=== PATIENT | male | born 1960 | race Caucasian/White ===

== ENCOUNTER 2017-07-01 18:00 | Emergency (ER) | payer SELFPAY ==
[2017-07-01] MEDS ORDERED: BUPIVACAINE HCL/PF 5 MG/ML 10ML VIAL IV ONE (18:12)
[2017-07-01] MEDS ORDERED: CEPHALEXIN 250 MG CAPSULE PO ONE (18:52)
[2017-07-01] MEDS ORDERED: NEOMYCIN SU/BACITRAC ZN/POLY 1 EACH OINT.PACK TP ONE (18:53)
--- NOTE | 2017-07-01 18:56 | ED Physician Documentation ---
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 Last tetanus with in 4 years. - ROS CONST: no problems - PAST HX Past History: hypertension Allergies/Adverse Reactions: Allergies Allergy/AdvReac Type Severity Reaction Status Date / Time No Known Allergies Allergy Unverified 07/01/17 18:10 Home Medications: Ambulatory Orders Medication Instructions Recorded Blood Pressure Med 07/01/17 Celecoxib [Celebrex] 100 mg PO DAILY 07/01/17 Cephalexin [Keflex] 500 mg PO Q6H #40 capsule 07/01/17 Cholesterol Medication 07/01/17 Ulcer Medication 07/01/17 - SOCIAL HX Smoking History: non-smoker - FAMILY HX Family History: No - VITAL SIGNS Vital Signs: Vital Signs Temp Pulse Resp BP Pulse Ox 79 20 180/98 98 07/01/17 18:00 07/01/17 18:00 07/01/17 18:00 07/01/17 18:00 - REVIEWED ASSESSMENTS Nursing Assessment Reviewed: Yes Vitals Reviewed: Yes Procedures Wound Location: upper extremity (right hand) Wound Length: 3 Wound's Depth, Shape: flap (sub q) Wound Explored: no foreign body removed Irrigated w/ Saline (ccs): 700 Betadine Prep?: No (chlorhexadine) Anesthesia: 0.5% Sensorcaine Volume of Anesthetic: 4 Wound Repaired With: sutures Suture Size/Type: 4:0 Number of Sutures: 7 Layer Closure?: No ED Results Lab/Radiology - Orders Orders: ED Orders Category Date Time Status Bupivacaine HCl/Pf [Marcaine 0.5%] Med 07/01/17 18:12 Discontinued 50 mg IV .STK-MED ONE General Adult Physical Exam - PHYSICAL EXAM GENERAL APPEARANCE: mild distress (anxious) EENT: eye inspection normal, ENT inspection normal NECK: normal inspection RESPIRATORY: no resp distress RECTAL: deferred BACK: normal inspection (movements w/o pain) SKIN: warm/dry, normal color, other (3 cm lac dorsal right hand 2 cm proximal to 2nd MCP) EXTREMITIES: normal range of motion (gait and stance) NEURO: CN's nml as tested, motor nml, sensation nml, cognition normal Discharge Clincal Impression: Laceration of right hand Qualifiers: Encounter type: initial encounter Foreign body presence: without foreign body Qualified Code(s): S61.411A - Laceration without foreign body of right hand, initial encounter Prescriptions: Cephalexin [Keflex] 500 mg PO Q6H #40 capsule Referrals: Primary Doctor,No [Primary Care Provider] - 2 Days Additional Instructions: Keep the stitches clean and dry. After 24 hours, you can wash hour hands or shower, but do not soak the stitches. Ask your provider to remove the stitches in 7-10 days. Apply over the counter antibiotic ointment twice a day for 2-3 weeks. Take all the antibiotics as prescribed until they are completely gone. Return to the ER immediately if the hand seems infected. Keep the hand elevated to the level of your heart. Home Medications: Ambulatory Orders Blood Pressure Med 07/01/17 Celecoxib [Celebrex] 100 mg PO DAILY 07/01/17 Cephalexin [Keflex] 500 mg PO Q6H #40 capsule 07/01/17 Cholesterol Medication 07/01/17 Ulcer Medication 07/01/17 Condition: Good Disposition: 01 HOME, SELF-CARE Decision to Admit: NO Decision Time: 18:55
[2017-07-01 19:26] VITALS: BP 135/79
== END 2017-07-01 19:00 | disposition home or self-care (01) ==
LOC: ED 18:00
DX: S61.411A Laceration without foreign body of right hand, initial encounter (principal); X58.XXXA Exposure to other specified factors, initial encounter; Y93.9 Activity, unspecified; Y99.9 Unspecified external cause status
CPT/HCPCS: 12002; 99283; J3490